=== PATIENT | female | born 1970 | race Hispanic/Latino ===

== ENCOUNTER 2021-03-31 09:44 | Outpatient (CLI) | payer OTHER ==
[2021-03-31 18:46] LABS: SARS-CoV-2 PCR by NAA Not Detected (NotDetected)
== END 2021-03-31 09:45 | disposition home or self-care (01) ==
LOC: CSHLAB 09:44
PROVIDERS: ATTEND Internal Medicine
DX: Z20.822 Contact with and (suspected) exposure to COVID-19 (principal); J45.50 Severe persistent asthma, uncomplicated
CPT/HCPCS: U0003; U0005

== ENCOUNTER 2021-04-05 12:35 | Outpatient (CLI) | payer OTHER | END 2021-04-05 12:36 | disposition home or self-care (01) | LOC: CSHCT 12:35 | PROVIDERS: ATTEND Internal Medicine | DX: J44.9 Chronic obstructive pulmonary disease, unspecified (principal); J45.50 Severe persistent asthma, uncomplicated | CPT/HCPCS: 71260; 94060; 94726; 94729; 94760 ==

== ENCOUNTER 2021-11-09 09:59 | Outpatient (CLI) | payer BC ==
[2021-11-09 10:46] LABS: Hemoglobin 13.7 g/dL (12.0-15.5); Mean Corpuscular HGB CONC 32.6 g/dL (32.0-36.0); Mean Corpuscular Hemoglobin 28.1 pg (27.0-33.0); Mean Corpuscular Volume 86.2 fl (81.6-98.3); Mean Platelet Volume 10.9 fl (7.4-10.4); Platelet Count 242 10x3/uL (150-450); RBC Distribution Width 12.4 % (11.5-14.5); Red Blood Cell (RBC) Count 4.87 10x6/uL (3.90-5.03); White Blood Cell (WBC) Count 5.6 10x3/uL (3.5-10.5)
[2021-11-09 11:03] LABS: BHCG - Serum Negative (NEGATIVE); Pregs Control Background? CLEAR/WHITE (CLR/WHITE); Pregs Control Bar Appear? YES (CONTROL BAR)
== END 2021-11-09 10:00 | disposition home or self-care (01) ==
LOC: CSHLAB 09:59
PROVIDERS: ATTEND Student in an Organized Health Care Education/Training Program
DX: Z01.812 Encounter for preprocedural laboratory examination (principal); Z20.822 Contact with and (suspected) exposure to COVID-19
CPT/HCPCS: 84703; 85027; 86850; 86900; 86901; 87811

== ENCOUNTER 2021-11-14 06:13 | Day surgery (SDC) | payer OTHER ==
[2021-11-09 10:46] LABS: Hemoglobin 13.7 g/dL (12.0-15.5); Mean Corpuscular HGB CONC 32.6 g/dL (32.0-36.0); Mean Corpuscular Hemoglobin 28.1 pg (27.0-33.0); Mean Corpuscular Volume 86.2 fl (81.6-98.3); Mean Platelet Volume 10.9 fl (7.4-10.4); Platelet Count 242 10x3/uL (150-450); RBC Distribution Width 12.4 % (11.5-14.5); Red Blood Cell (RBC) Count 4.87 10x6/uL (3.90-5.03); White Blood Cell (WBC) Count 5.6 10x3/uL (3.5-10.5)
[2021-11-09 11:03] LABS: BHCG - Serum Negative (NEGATIVE); Pregs Control Background? CLEAR/WHITE (CLR/WHITE); Pregs Control Bar Appear? YES (CONTROL BAR)
[2021-11-10 12:04] VITALS: BMI 30.7
[2021-11-14] MEDS ORDERED: Gabapentin 300 MG CAP ONE (06:25)
[2021-11-14] MEDS ORDERED: CeleCOXIB 100 MG CAP ONE (06:25)
[2021-11-14] MEDS ORDERED: Famotidine/PF 20 mg/2ml Vial ONE (06:26)
[2021-11-14] MEDS ORDERED: EPINEPHrine 1 MG/ML AMP ONE (06:59)
[2021-11-14] MEDS ORDERED: Bupivacaine PF 0.5% 30 ML VIAL ONE (06:59)
[2021-11-14] MEDS ORDERED: PROPOFOL 20 ML ONE (07:14)
[2021-11-14] MEDS ORDERED: Fentanyl 100 MCG/2 ML VIAL ONE ×2 (07:15→08:53)
[2021-11-14] MEDS ORDERED: Midazolam HCl 2 mg/2 ml Vial ONE (07:18)
[2021-11-14] MEDS ORDERED: Lidocaine 1% PF 5 ML VIAL ONE (07:20)
[2021-11-14] MEDS ORDERED: Rocuronium Bromide 10 MG/ML (10ML VIAL) ONE (07:20)
[2021-11-14] MEDS ORDERED: CEFAZOLIN 2 GM VIAL ONE (07:24)
[2021-11-14] MEDS ORDERED: PHENYLEPHRINE-NS 100 MCG/ML 10 ML SYRINGE ONE (07:44)
[2021-11-14] MEDS ORDERED: ePHEDrine Sulfate 50 MG/10 ML VIAL ONE (07:45)
[2021-11-14] MEDS ORDERED: Albuterol Sulfate HFA (OR ONLY) ONE ×2 (07:52→08:26)
[2021-11-14] MEDS ORDERED: Dexamethasone 4 mg/ml Vial ONE (08:13)
[2021-11-14] MEDS ORDERED: Ondansetron PF 4 MG/2 ML Vial ONE ×2 (08:13→11:43)
[2021-11-14] MEDS ORDERED: Glycopyrrolate 0.2 MG/ML 5 ML SYRINGE ONE (08:18)
[2021-11-14] MEDS ORDERED: SUGAMMADEX SODIUM 200 MG/2 ML VIAL ONE (09:09)
[2021-11-14] MEDS ORDERED: HYDROcodone/Acetaminophen 5/325 mg Tablet ONE (12:36)
== END 2021-11-14 13:30 | disposition home or self-care (01) ==
LOC: CSHSDC 06:13
PROVIDERS: ATTEND Student in an Organized Health Care Education/Training Program
PROC: 0UT94ZZ Resection of Uterus, Percutaneous Endoscopic Approach (ICD-10-PCS; principal; 2021-11-14)
PROC: 0UT74ZZ Resection of Bilateral Fallopian Tubes, Percutaneous Endoscopic Approach (ICD-10-PCS; principal; 2021-11-14)
DX: D25.9 Leiomyoma of uterus, unspecified (principal); N80.0 Endometriosis of uterus; N83.8 Other noninflammatory disorders of ovary, fallopian tube and broad ligament; N76.0 Acute vaginitis; N95.0 Postmenopausal bleeding; J45.50 Severe persistent asthma, uncomplicated; K21.9 Gastro-esophageal reflux disease without esophagitis; F32.9 Major depressive disorder, single episode, unspecified; Z79.899 Other long term (current) drug therapy; Z20.822 Contact with and (suspected) exposure to COVID-19; Z98.51 Tubal ligation status; Z98.890 Other specified postprocedural states
CPT/HCPCS: 36415; 84703; 85027; 86850; 86900; 86901; 87811; 88307; J0171; J0690; J1100; J2250; J2405; J2704; J3010; S0020; S0028